=== PATIENT | female | born 2000 | race Hispanic/Latino ===

== ENCOUNTER 2020-04-24 11:53 | Inpatient (IN) | payer OTHER, MEDICAID ==
[~2020-04-24] VITALS: Ht 157.5 cm; Wt 78.9 kg
[2020-04-24] MEDS ORDERED: LACTATED RINGERS 1000ML 1,000 ML IV PRN (14:31)
[2020-04-24] MEDS ORDERED: ROPIVACAINE 0.2% 100ML VIAL 100 ML EP SCH (14:45)
[2020-04-24] MEDS ORDERED: LACTATED RINGERS 500 ML 500 ML IV PRN (14:45)
[2020-04-24] MEDS ORDERED: EPHEDRINE SULFATE 50 MG/ML AMPULE IVP PRN (14:45)
[2020-04-24] MEDS ORDERED: BUTORPHANOL TARTRATE 2 MG/ML IVP PRN (14:45)
[2020-04-24] MEDS ORDERED: DINOPROSTONE 10 MG VAGINAL SUPP VG SCH (14:45)
[2020-04-24] MEDS ORDERED: NALOXONE HCL 0.4 MG/1 ML ML IV PRN (14:45)
[2020-04-24] MEDS ORDERED: OXYTOCIN-LR 20 UNITS/1000 ML 1,000 ML IV SCH (14:45)
[2020-04-24 15:08] LABS: HEMATOCRIT 38.4 % (36-48); MEAN CORPUSCULAR HGB CONC 33.6 g/dL (32.0-36.0); MEAN CORPUSCULAR VOLUME 83.3 fL (79-99); RED BLOOD CELL COUNT(AUTO) 4.61 MIL/uL (4.00-5.50); RED CELL DISTRIBUTION WIDTH 14.5 % (11.0-15.5); WHITE BLOOD COUNT (AUTO) 10.5 K/uL (4.8-10.8)
[2020-04-25] MEDS ORDERED: ACETAMINOPHEN-CODEINE 300/30MG TAB PO PRN (01:30)
[2020-04-25] MEDS ORDERED: WITCH HAZEL 1 PAD TP PRN (01:30)
[2020-04-25] MEDS ORDERED: DIPH,PERTUSS(ACELL),TET VAC/PF 0.5 ML VIAL IM PRN (01:30)
[2020-04-25] MEDS ORDERED: BENZOCAINE/LANOLIN/ALOE VERA 60 ML AEROSOL TP PRN (01:30)
[2020-04-25] MEDS ORDERED: LANOLIN 30GM OINTMENT TP PRN (01:30)
[2020-04-25] MEDS: OXYTOCIN-LR 20 UNITS/1000 ML 1,000 ML IV SCH (02:49)
[2020-04-25 03:40] VITALS: BP 125/71
[2020-04-25 07:00] VITALS: BP 133/70
[2020-04-25] MEDS ORDERED: PREN-202 PO (07:02)
[2020-04-25] MEDS: DOCUSATE SODIUM 100 MG CAP PO SCH ×2 (08:21→20:19)
[2020-04-25] MEDS: IBUPROFEN 600 MG TABLET PO PRN ×2 (08:26→16:45)
[2020-04-25 11:33] VITALS: BP 138/78
[2020-04-25 16:49] VITALS: BP 130/76
[2020-04-25 19:43] VITALS: BP 137/70
[2020-04-26 00:10] VITALS: BP 121/82
[2020-04-26] MEDS: OXYTOCIN-LR 20 UNITS/1000 ML 1,000 ML IV SCH (01:30)
[2020-04-26 03:02] VITALS: BP 109/64
[2020-04-26] MEDS: IBUPROFEN 600 MG TABLET PO PRN (05:12)
[2020-04-26 07:36] VITALS: BP 127/70
[2020-04-26] MEDS: DOCUSATE SODIUM 100 MG CAP PO SCH (09:16)
--- NOTE | 2020-04-26 10:30 | NUR ---
DR. STINSON CALLED AND UPDATE GIVEN ON PATIENT AND INFORMED OF DR. PENDLETON WRITTEN ORDER FOR DISCHARGE ONCE BABY IS DISCHARGED.
[2020-04-26 11:20] VITALS: BP 134/78
--- NOTE | 2020-04-26 12:00 | NUR ---
DISCHARGE INSTRUCTIONS GIVEN AND SCRIPT FOR MOTRIN ISSUED AND INSTRUCTED ON DOSAGE AND FREQUENCY. PATIENT VERBALIZED UNDERSTANDING INSTRUCTIONS GIVEN.
[2020-04-26 12:10] LABS: HEPATITIS Bs ANTIGEN SCREEN P Negative (Negative)
--- NOTE | 2020-04-26 12:10 | NUR ---
PATIENT WAS TAKEN VIA W/C TO [facility]ABY IN [place]. PATIENT IS STABLE AND DENIES PAIN.
== END 2020-04-26 12:10 | disposition home or self-care (01) | DRG 807 ==
LOC: EDH 11:53 → OBSVTOIN 12:12 → LDH 12:12 → WSH 04-25 03:39
PROVIDERS: ADMIT Obstetrics & Gynecology; ATTEND Obstetrics & Gynecology
PROC: 10E0XZZ Delivery of Products of Conception, External Approach (ICD-10-PCS; principal; 2020-04-25)
PROC: 3E0234Z Introduction of Serum, Toxoid and Vaccine into Muscle, Percutaneous Approach (ICD-10-PCS; 2020-04-25)
PROC: 3E0R3BZ Introduction of Anesthetic Agent into Spinal Canal, Percutaneous Approach (ICD-10-PCS; 2020-04-25)
PROC: 00HU33Z Insertion of Infusion Device into Spinal Canal, Percutaneous Approach (ICD-10-PCS; 2020-04-25)
DX: O80 Encounter for full-term uncomplicated delivery (principal); Z37.0 Single live birth; Z3A.39 39 weeks gestation of pregnancy; Z23 Encounter for immunization
CPT/HCPCS: 36415; 85027; 86592; 86850; 86900; 86901; 87340; 90715; A4314; G0378; J0595; J2590; J2795; J7120